=== PATIENT | female | born 1975 | race Caucasian/White ===

== ENCOUNTER 2024-08-15 04:09 | Inpatient (IN) | payer OTHER ==
[2024-08-14 09:43] VITALS: BMI 32.3
[2024-08-15] MEDS ORDERED: GLYCOPYRROLATE 0.2 MG/1 ML VIAL ONE (07:37)
[2024-08-15] MEDS ORDERED: TRANEXAMIC ACID 1000 MG/10 ML VIAL ONE (07:37)
[2024-08-15] MEDS ORDERED: CLINDAMYCIN PHOSPHATE 600 MG/4 ML VIAL ONE (07:37)
[2024-08-15] MEDS ORDERED: ONDANSETRON 4 MG/2 ML VIAL ONE ×2 (07:37→11:43)
[2024-08-15] MEDS ORDERED: DEXAMETHASONE SOD PHOSPHATE 4 MG/1 ML VIAL ONE (07:37)
[2024-08-15] MEDS ORDERED: LIDOCAINE HCL/PF 2% SDV 5ML VIAL ONE (07:37)
[2024-08-15] MEDS ORDERED: SUCCINYLCHOLINE CHLORIDE 200 MG/10 ML SYRINGE ONE (07:39)
[2024-08-15] MEDS ORDERED: MAGNESIUM SULF 50% (8.12 MEQ/2 ML-1 GM VIAL) ONE (07:41)
[2024-08-15] MEDS ORDERED: MIDAZOLAM HCL 2 MG/2 ML SINGLE DOSE VIAL ONE (07:41)
[2024-08-15] MEDS ORDERED: PROPOFOL 20 ML ONE ×2 (07:43→12:50)
[2024-08-15] MEDS ORDERED: DEXMEDETOMIDINE HCL 200 MCG/2 ML IVPB ONE (07:45)
[2024-08-15] MEDS ORDERED: ACETAMINOPHEN INJECTION 100 ML ONE (07:45)
[2024-08-15] MEDS ORDERED: GENTAMICIN SO4 80 MG/2 ML VIAL ONE (08:05)
[2024-08-15] MEDS ORDERED: BUPIVACAINE HCL/PF 0.5% (5MG/ML) 10 ML VIAL ONE (08:05)
[2024-08-15] MEDS ORDERED: BUPIVACAINE LIPOSOME/PF (EXPAREL) 266 MG/20 ML VIAL ONE (08:05)
[2024-08-15] MEDS ORDERED: LIDOCAINE 1%/EPI 1:100000 (20 ML MULTI DOSE VIAL) ONE (08:05)
[2024-08-15] MEDS ORDERED: REMIFENTANIL (ULTIVA) HCL 1 MG VIAL ONE (08:06)
[2024-08-15] MEDS ORDERED: HYDROmorphone HCl 2 MG/ML VIAL ONE (08:08)
[2024-08-15] MEDS ORDERED: KETAMINE HCL 200 MG/20 ML VIAL ONE (08:11)
[2024-08-15] MEDS ORDERED: BACITRACIN ZINC 15 GM TUBE TOPICAL OINTMENT ONE (08:19)
[2024-08-15] MEDS: CLINDAMYCIN 900 MG PREMIX BAG IVPB ONE ×2 (08:35→09:59)
[2024-08-15] MEDS ORDERED: ROCURONIUM BROMIDE 50 MG/5 ML SYRINGE ONE ×3 (08:45→11:06)
[2024-08-15] MEDS: LIDOCAINE 1%/EPI 1:100000 (20 ML MULTI DOSE VIAL) IJ ONE ×2 (08:57→10:45)
[2024-08-15] MEDS ORDERED: PHENYLEPHRINE HCL 10 MG/1 ML SINGLE DOSE VIAL ONE (09:10)
[2024-08-15] MEDS ORDERED: ONDANSETRON 4 MG/2 ML VIAL IVPUSH PRN ×2 (09:13→13:25)
[2024-08-15] MEDS ORDERED: SEVOFLURANE 250 ML BTL ONE ×2 (09:32→12:37)
[2024-08-15] MEDS: GENTAMICIN SO4 80 MG/2 ML VIAL IVPB ONE (10:00)
[2024-08-15] MEDS: HYDROGEN PEROXIDE 473 ML PO ONE (10:01)
[2024-08-15] MEDS: BUPIVACAINE LIPOSOME/PF (EXPAREL) 266 MG/20 ML VIAL NR ONE ×2 (12:22→12:31)
[2024-08-15] MEDS: BUPIVACAINE HCL/PF 0.5% (5MG/ML) 10 ML VIAL IJ ONE ×2 (12:22→12:31)
[2024-08-15] MEDS ORDERED: SUGAMMADEX SODIUM 200 MG/2 ML VIAL ONE (12:37)
[2024-08-15] MEDS ORDERED: oxyCODONE HCL 5 MG TABLET PO PRN ×2 (13:25)
[2024-08-15] MEDS ORDERED: morphine CARPU-JECT 4 MG/1 ML DISP.SYRIN IVPUSH PRN (13:25)
[2024-08-15] MEDS ORDERED: diphenhydrAMINE HCL 25 MG CAPSULE (FP) PO PRN (13:25)
[2024-08-15] MEDS: CLINDAMYCIN 600MG PREMIX IVPB 600 MG/50 ML BAG IVPB SCH (14:07)
[2024-08-15] MEDS: HEPARIN NA (PORCINE) 5,000 UNITS/ML 1ML VIAL SQ SCH ×2 (14:26→22:10)
[2024-08-15] MEDS: HYDROmorphone *PCA* 10MG/50ML DISP.SYRIN PCA SCH (14:44)
[2024-08-15 14:52] LABS: HEMATOCRIT 40.5 % (32.4-45.2); HEMOGLOBIN 13.9 GM/dL (10.7-15.3); MCH 31.1 pg (25.7-33.7); MCHC 34.4 g/dl (32.0-36.0); MEAN CELL VOLUME 90.2 fl (80-96); MEAN PLT VOLUME 8.2 fl (7.5-11.1); PLATELET COUNT 277 10^3/uL (134-434); RBC 4.49 M/mm3 (3.60-5.2); RDW 12.6 % (11.6-15.6); WHITE BLOOD COUNT 14.5 K/mm3 (4.0-10.0)
[2024-08-15 15:25] LABS: POTASSIUM 4.2 mmol/L (3.5-5.1)
[2024-08-15 15:27] LABS: ANISOCYTOSIS 0; CALCIUM 8.7 mg/dL (8.5-10.1); HELMET CELLS 0; HOWELL-JOLLY BODIES 0; MACROCYTOSIS 0; OVALOCYTE 0; ROULEAU 0; SICKELED CELLS 0; TARGET CELLS 0; TEAR DROP CELLS 0; TOXIC GRANULATION 0
[2024-08-15 15:28] LABS: BLOOD UREA NITROGEN 8.6 mg/dL (7-18)
[2024-08-15 15:31] LABS: CREATININE 0.7 mg/dL (0.55-1.3)
[2024-08-15] MEDS: DOCUSATE SODIUM 100 MG CAPSULE (FP) PO SCH (16:13)
[2024-08-15] MEDS: LACTATED RINGERS SOLUTION 1,000 ML IV SCH (16:13)
[2024-08-15] MEDS: LACTATED RINGERS SOLUTION 1,000 ML/1,000 ML INFUS.BAG IV SCH (16:13)
[2024-08-15] MEDS: ACETAMINOPHEN 1000 MG/100 ML BAG IVPB PRN (19:37)
[2024-08-15] MEDS ORDERED: PATIENT'S OWN MEDICATION (NON-FORMULARY) (Tizanidine Hcl [Tizanidine Hcl] 6 MG Capsule) PO SCH (22:00)
[2024-08-16] MEDS: GABAPENTIN 400 MG CAPSULE PO SCH (07:15)
[2024-08-16] MEDS: FOLIC ACID 1 MG TABLET (FP) PO SCH (10:22)
[2024-08-16] MEDS: FERROUS SO4 325 MG TABLET (FP) PO SCH (10:23)
[2024-08-16] MEDS ORDERED: oxyCODONE HCL 5 MG TABLET PO PRN (11:36)
[2024-08-16] MEDS ORDERED: HYDROmorphone HCl 2 MG/ML VIAL IVPUSH PRN (11:38)
[2024-08-16] MEDS ORDERED: HYDROmorphone *PCA* 10MG/50ML DISP.SYRIN ONE (12:18)
[2024-08-16] MEDS: ACETAMINOPHEN 500 MG TABLET (FP) PO SCH (15:40)
[2024-08-16] MEDS: oxyCODONE HCL 5 MG TABLET PO PRN (19:14)
[2024-08-17] MEDS: HYDROmorphone HCL CARPU-JECT 2 MG/1 ML DISP.SYRIN IVPUSH PRN (09:40)
[2024-08-17 10:24] LABS: BASO % 0.2 % (0-2.0); EOS % 1.7 % (0-4.5); HEMATOCRIT 39.5 % (32.4-45.2); HEMOGLOBIN 13.4 GM/dL (10.7-15.3); MCH 31.1 pg (25.7-33.7); MEAN CELL VOLUME 91.4 fl (80-96); MEAN PLT VOLUME 8.6 fl (7.5-11.1); MONO % 6.2 % (3.8-10.2); NEUT % 78.9 % (42.8-82.8); PLATELET COUNT 243 10^3/uL (134-434); RBC 4.32 M/mm3 (3.60-5.2); RDW 12.9 % (11.6-15.6); WHITE BLOOD COUNT 10.8 K/mm3 (4.0-10.0)
[2024-08-17 11:49] VITALS: BP 146/76; PULSE 84; RESP 18; TEMP 98.1
[2024-08-17 12:13] LABS: POTASSIUM 3.8 mmol/L (3.5-5.1)
[2024-08-17 12:17] LABS: ALBUMIN 3.2 g/dl (3.4-5.0); BLOOD UREA NITROGEN 6.3 mg/dL (7-18)
[2024-08-17 12:20] LABS: CREATININE 0.5 mg/dL (0.55-1.3)
[2024-08-17 12:22] LABS: BILIRUBIN,TOTAL 0.8 mg/dL (0.2-1); CALCIUM 9.2 mg/dL (8.5-10.1); TOT PROT 6.5 g/dl (6.4-8.2)
== END 2024-08-17 11:54 | disposition home or self-care (01) | DRG 430 ==
LOC: J2C 04:09 → J8W 15:55 → EDSTATUS 08-18 08:00
PROVIDERS: ADMIT Neurological Surgery; ATTEND Nurse Practitioner Acute Care
PROC: 0RB30ZZ Excision of Cervical Vertebral Disc, Open Approach (ICD-10-PCS; 2024-08-15)
PROC: 00NW0ZZ Release Cervical Spinal Cord, Open Approach (ICD-10-PCS; 2024-08-15)
PROC: 4A11X4G Monitoring of Peripheral Nervous Electrical Activity, Intraoperative, External Approach (ICD-10-PCS; 2024-08-15)
PROC: 0RG20A0 Fusion of 2 or more Cervical Vertebral Joints with Interbody Fusion Device, Anterior Approach, Anterior Column, Open Approach (ICD-10-PCS; principal; 2024-08-15 08:00)
PROC: 0RG2071 Fusion of 2 or more Cervical Vertebral Joints with Autologous Tissue Substitute, Posterior Approach, Posterior Column, Open Approach (ICD-10-PCS; 2024-08-15 08:00)
DX: M47.12 Other spondylosis with myelopathy, cervical region (principal); M40.202 Unspecified kyphosis, cervical region; M19.012 Primary osteoarthritis, left shoulder; M19.011 Primary osteoarthritis, right shoulder; M16.0 Bilateral primary osteoarthritis of hip; G89.29 Other chronic pain; Z68.32 Body mass index [BMI] 32.0-32.9, adult; E66.01 Morbid (severe) obesity due to excess calories; Z71.3 Dietary counseling and surveillance; Z53.1 Procedure and treatment not carried out because of patient's decision for reasons of belief and group pressure
CPT/HCPCS: 36415; 72125-TC; 76000-TC-FY; 80048; 80053; 83735; 85025; 94760; 97116-GP; 97161-GP; C1713; J0131; J1644

== ENCOUNTER 2025-06-19 08:00 | Inpatient (IN) | payer OTHER ==
[2025-06-25 15:20] VITALS: BMI 30.6
[2025-06-26] MEDS: LIDOCAINE 1%/EPI 1:100000 (20 ML MULTI DOSE VIAL) IJ ONE
[2025-06-26] MEDS: ceFAZolin 2 GRAM PREMIX BAG IVPB ONE
[2025-06-26 09:45] VITALS: BP 116/78; PULSE 71; RESP 20; TEMP 97.7
[2025-06-26] MEDS ORDERED: SUCCINYLCHOLINE CHLORIDE 200 MG/10 ML SYRINGE ONE (09:48)
[2025-06-26] MEDS ORDERED: ROCURONIUM BROMIDE 50 MG/5 ML SYRINGE ONE (09:49)
[2025-06-26] MEDS ORDERED: MIDAZOLAM HCL 2 MG/2 ML SINGLE DOSE VIAL ONE (09:52)
[2025-06-26] MEDS ORDERED: CLINDAMYCIN PHOSPHATE 600 MG/4 ML VIAL ONE (09:53)
[2025-06-26] MEDS ORDERED: CLINDAMYCIN 600MG PREMIX IVPB 600 MG/50 ML BAG IVPB ONE (09:53)
[2025-06-26] MEDS ORDERED: LIDOCAINE HCL/PF 2% SDV 5ML VIAL ONE (09:54)
[2025-06-26] MEDS ORDERED: GLYCOPYRROLATE 0.2 MG/1 ML VIAL ONE (09:54)
[2025-06-26] MEDS ORDERED: DEXAMETHASONE SOD PHOSPHATE 4 MG/1 ML VIAL ONE (09:54)
[2025-06-26] MEDS ORDERED: ONDANSETRON 4 MG/2 ML VIAL ONE (09:54)
[2025-06-26] MEDS ORDERED: MAGNESIUM SULF 50% (8.12 MEQ/2 ML-1 GM VIAL) ONE (09:56)
[2025-06-26] MEDS ORDERED: SODIUM CHLORIDE 0.9% P/F 10 ML VIAL IJ ONE (09:58)
[2025-06-26] MEDS ORDERED: PROPOFOL 20 ML ONE (10:03)
[2025-06-26] MEDS ORDERED: PROPOFOL 60 ML ONE (10:04)
[2025-06-26] MEDS ORDERED: ACETAMINOPHEN INJECTION 100 ML ONE (10:36)
[2025-06-26] MEDS ORDERED: VANCOMYCIN 1,000 MG VIAL (RESTRICTED TO ID ONLY) ONE (12:02)
[2025-06-26] MEDS ORDERED: GENTAMICIN SO4 80 MG/2 ML VIAL ONE (12:02)
[2025-06-26] MEDS ORDERED: BUPIVACAINE HCL/PF 0.5% (5MG/ML) 10 ML VIAL ONE (12:03)
[2025-06-26] MEDS ORDERED: LIDOCAINE 1%/EPI 1:100000 (20 ML MULTI DOSE VIAL) ONE (12:03)
[2025-06-26] MEDS ORDERED: THROMBIN (BOVINE) 20,000 UNIT VIAL TP ONE (12:03)
[2025-06-26] MEDS ORDERED: BUPIVACAINE LIPOSOME/PF (EXPAREL) 266 MG/20 ML VIAL ONE (12:04)
[2025-06-26] MEDS ORDERED: ONDANSETRON 4 MG/2 ML VIAL IVPUSH PRN (12:31)
[2025-06-26] MEDS ORDERED: diphenhydrAMINE HCL 25 MG CAPSULE (FP) PO PRN (12:31)
[2025-06-26] MEDS ORDERED: LACTATED RINGERS SOLUTION 1,000 ML/1,000 ML INFUS.BAG IV SCH (12:45)
[2025-06-26] MEDS ORDERED: HEPARIN NA (PORCINE) 5,000 UNITS/ML 1ML VIAL SQ SCH (14:00)
[2025-06-26] MEDS ORDERED: DOCUSATE SODIUM 100 MG CAPSULE (FP) PO SCH (14:00)
[2025-06-27] MEDS ORDERED: FOLIC ACID 1 MG TABLET (FP) PO SCH (10:00)
[2025-06-27] MEDS ORDERED: FERROUS SO4 325 MG TABLET (FP) PO SCH (10:00)
== END 2025-06-26 13:20 | disposition home or self-care (01) | DRG 552 ==
LOC: J2C 06-26 06:10
PROVIDERS: ADMIT Neurological Surgery; ATTEND Neurological Surgery
DX: M47.896 Other spondylosis, lumbar region (principal)
CPT/HCPCS: J0666